=== PATIENT | female | born 1965 | race Caucasian/White ===

== ENCOUNTER 2017-06-29 19:34 | Inpatient (IN) | payer OTHER ==
[~2017-06-29] VITALS: Ht 157.5 cm; Wt 118.0 kg
--- NOTE | 2017-06-29 19:42 | ED PSYCHIATRIC COMPLAINT ---
History of Present Illness General Chief Complaint: Psychiatric Related Complaint Stated Complaint: +SI PER EMS ON PD PAPER Vital Signs & Intake/Output Vital Signs & Intake/Output Vital Signs Date Time Temp Pulse Resp B/P B/P Pulse O2 O2 Flow FiO2 Mean Ox Delivery Rate 06/29 2009 97.6 84 16 140/68 99 Room Air Allergies Coded Allergies: No Known Allergies (06/29/17) Past History Travel History Traveled to [place] past 21 day No Progress Plan of Care: Orders Procedure Date/time Status Regular Diet 06/30 B Active Continuous Observation Monitor 06/29 1943 Active URINE DRUG SCREEN FOR ER ONLY 06/29 1943 Active ETHANOL 06/29 1943 Active COMPREHENSIVE METABOLIC PANEL 06/29 1943 Active CBC WITHOUT DIFFERENTIAL 06/29 1943 Active ED CRISIS PSYCH CONSULT 06/29 1943 Active Departure Departure Condition: Stable Referrals: Unknown Departure Forms: Customer Survey General Discharge Information
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
[2017-06-29 22:21] LABS: ABSOLUTE BASOPHIL COUNT 0 /CUMM (0.0-0.2); ABSOLUTE EOSINOPHIL COUNT 0.4 /CUMM (0.0-0.7); ABSOLUTE GRANULOCYTE CT 6.1 /CUMM (1.4-6.5); ABSOLUTE MONOCYTE COUNT 0.7 /CUMM (0.10-0.60); BASOPHIL % 0.2 % (0.0-2.0); EOSINOPHIL % 4.4 % (0-5); GRANULOCYTE % 65.9 % (42.2-75.2); HEMATOCRIT 42.7 % (37-47); MEAN CORPUSCULAR HGB 31.8 PG (27.0-31.0); MEAN CORPUSCULAR HGB CONC 33.9 G/DL (33.0-37.0); MEAN CORPUSCULAR VOLUME 93.9 FL (81.0-99.0); PLATELET COUNT 399 /CUMM (130-400); RBC DISTRIBUTION WIDTH 14.3 % (11.5-14.5); RED BLOOD CELL CT 4.54 /CUMM (4.20-5.40); WHITE BLOOD CELL COUNT 9.2 /CUMM (4.8-10.8)
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
[2017-06-30 12:18] VITALS: BP 160/82
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
[2017-06-30 12:49] VITALS: BP 160/82
[2017-06-30] MEDS ORDERED: TOPAMAX50 M1 PO (13:19)
[2017-06-30] MEDS ORDERED: WELLBUTRIN XL150 M2 PO (13:20)
[2017-06-30] MEDS ORDERED: CYMBALTA60 M1 PO (13:21)
[2017-06-30] MEDS ORDERED: FOLIC ACID1 M1 PO (13:22)
[2017-06-30] MEDS ORDERED: HYDROCHLOROTHIA25 M1 PO (13:22)
[2017-06-30] MEDS ORDERED: METFORMIN HCL500 M2 PO (13:23)
[2017-06-30] MEDS ORDERED: NORVASC2.5 M1 PO (13:24)
[2017-06-30] MEDS ORDERED: METHOTREXATE2.5 M2 PO (13:27)
--- NOTE | 2017-06-30 15:22 | History & Physical ---
General Information and HPI History of Present Illness: 52-year-old female with history of depression. Admitted to the inpatient psychiatric service after presenting to the ER with depression and suicidal ideation. Currently, uncooperative. 12 point review of systems noncontributory other than reports of depression. Allergies/Medications Allergies: Coded Allergies: No Known Allergies (06/29/17) Home Med list Amlodipine (Norvasc) 2.5 MG TABLET 2.5 MG PO DAILY HYPERTENSION (Reported) Bupropion HCl (Wellbutrin XL) 150 MG TAB.ER.24H 150 MG PO DAILY DEPRESSION ( Reported) Duloxetine HCl (Cymbalta) 60 MG CAPSULE.DR 90 MG PO DAILY DEPRESSION ( Reported) Folic Acid 1 MG TABLET 1 MG PO DAILY VITAMIN (Reported) Hydrochlorothiazide 25 MG TABLET 25 MG PO DAILY HYPERTENSION (Reported) Metformin HCl (Metformin HCl ER) 500 MG TAB.ER.24 500 MG PO BID WEIGHT CONTROL (Reported) Methotrexate 2.5 MG TABLET 2.5 MG PO ONCE A WEEK PSORAISIS (Reported) Topiramate (Topamax) 50 MG TABLET 50 MG PO BID ANXIETY (Reported) Past History Travel History Traveled to [place] past 21 day No Medical History Neurological: NONE EENT: NONE Cardiovascular: NONE Respiratory: NONE Gastrointestinal: NONE Hepatic: NONE Renal: NONE Musculoskeletal: NONE Psychiatric: depression Endocrine: NONE Blood Disorders: NONE Cancer(s): NONE ANALYTICS DIRECTOR/Reproductive: NONE History of MRSA: No History of VRE: No History of CDIFF: No Isolation History: Standard Influenza Vaccine: 06/30/17 Surgical History Surgical History: none Past Family/Social History Psychosocial History Where do you live? Home ETOH Use: occasional use Review of Systems Review of Systems Constitutional: Reports: see HPI. Exam & Diagnostic Data Last 24 Hrs of Vital Signs/I&O Vital Signs Date Time Temp Pulse Resp B/P B/P Pulse O2 O2 Flow FiO2 Mean Ox Delivery Rate 06/30 1503 97.8 56 20 160/82 06/30 1249 97.8 56 160/82 06/30 1218 97.8 56 160/82 06/30 1107 98.5 66 20 141/64 06/30 1101 98.2 77 18 136/84 98 Room Air 06/30 0907 98.5 66 20 141/64 96 Room Air 06/30 0616 97.7 82 18 122/56 94 Room Air 06/30 0341 97.8 65 20 118/606 97 06/30 0044 97.8 64 20 150/62 96 06/30 0023 97.0 68 20 160/92 99 06/29 2233 Room Air 06/29 2009 97.6 84 16 140/68 99 Room Air Intake & Output 06/30 1600 06/30 0800 06/30 0000 Intake Total 0 Output Total Balance 0 Intake, Oral 0 Patient 118.047 kg 117.934 kg Weight Weight Reported by Patient Measurement Method Physical Exam General Appearance Alert, Oriented X3, Cooperative, No Acute Distress Skin No Rashes, No Breakdown, No Significant Lesion HEENT Atraumatic, PERRLA, EOMI, Mucous Membr. moist/pink Neck Supple, No JVD, No thryomegaly Cardiovascular Regular Rate, Normal S1, Normal S2, No Murmurs Lungs Clear to Auscultation, Normal Air Movement Abdomen Normal Bowel Sounds, Soft, No Tenderness Neurological Exam Findings: Normal Gait, Normal Speech, Cranial Nerves 3-12 NL Cranial Nerves II through XII: Within normal limits. Extremities No Clubbing, No Cyanosis, No Edema, Normal Pulses Vascular Normal Pulses Last 24 Hrs of Labs/[place]: Laboratory Tests 06/30/17 0036: Urine Opiates Screen < 100.00, Methadone Screen 71, Barbiturate Screen < 60, Ur Phencyclidine Scrn < 6.00, Amphetamines Screen 200, U Benzodiazepines Scrn < 85, Urine Cocaine Screen < 50, Urine Cannabis Screen < 5.00 06/29/17 2215: Anion Gap 13, Estimated GFR > 60, BUN/Creatinine Ratio 23.3, Glucose 109 H, Hemoglobin A1c Pending, Calcium 10.0, Total Bilirubin 0.3, AST 36, ALT 53 H, Alkaline Phosphatase 85, Total Protein 7.2, Albumin 4.2, Globulin 3.0, Albumin/ Globulin Ratio 1.4, Triglycerides 287 H, Cholesterol 230 H, LDL Cholesterol, Calc 125, HDL Cholesterol 48, Cholesterol/HDL Ratio 5 H, TSH &T3 &Free T4 Intrp 3.120, CBC w Diff NO MAN DIFF REQ, RBC 4.54, MCV 93.9, MCH 31.8 H, RDW 14.3, MPV 8.0, Gran % 65.9, Lymphocytes % 22.0, Monocytes % 7.5, Eosinophils % 4.4, Basophils % 0.2, Absolute Granulocytes 6.1, Absolute Lymphocytes 2.0, Absolute Monocytes 0.7 H, Absolute Eosinophils 0.4, Absolute Basophils 0, PUBS MCHC 33.9 , Serum Alcohol < 10.0 Assessment/Plan Assessment: 52-year-old female with history of depression. Admitted to the inpatient psychiatric service after presenting to the ER with depression and suicidal ideation. Recommendations: - Continue blood pressure control with amlodipine and Toprol-XL -Continue her metformin 500 mg orally twice daily which she is taking for weight loss. Please recall the medical service as needed. - As Ranked By This Provider Problem List: 1. Depression Miscellaneous Miscellaneous Documentation Attending Case Discussed With: Juvenal Sharpe MD Primary Care Physician: Yu Hopkins MD Patient sees these Specialists None. Level of Patient Care: MARGARITA Temple
[2017-06-30 16:21] VITALS: BP 125/66
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
[2017-06-30 19:56] VITALS: BP 123/54
[2017-07-01 07:44] VITALS: BP 144/77; BP 149/93
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
[2017-07-01 12:21] VITALS: BP 121/81
[2017-07-01 16:02] VITALS: BP 134/93
--- NOTE | 2017-07-01 18:49 | CP SOUTH PROGRESS NOTE PSYCH ---
Psych (Inpt) Progress Note Progress Note Include the following elements, when applicable: Involvement in the active treatment of the patient with behavioral observations of the patient and the patient's response to the treatment. Review of the ongoing treatment process in the context of the treatment plan. Indication of how multi-disciplinary staff members are carrying out the treatment plan. Plans for future interventions and recommendations for revision of the treatment plan. Liaison with other physicians/providers. The patient was seen 1: 1 and discussed with the unit staff. We reviewed the inpatient progress notes and the deburrer strip's notes. The patient was hospitalized for depression and suicidal ideation with gesture. She is reporting that she was feeling much better. She reported that her children and her visited her and that felt good. She no longer felt on loft and unknown. She continues to be very sad at the marital tension and poor relationship that she has with her . She continues to feel depressed, with low energy, increased anxiety at the thought of work and how much stress that poses for her. She feels guilty for being and patient, she is conflicted relative her feelings and her marriage. He feels guilty for the potential harm she caused her children by being in hospital. The patient's mood is anxious and depressed. Her affect is constricted, sluggish, blunted appropriate to the situation and content. Patient's thought processes are linear, there is no overt psychosis, there is no yazan or hypomania. The patient states, and also believes, that she will not harm herself or anybody else. She has good attention and concentration, intact memory, she denies histories denies auditory/visual hallucinations, she is tolerating medication well. The patient was worried about treatment after discharge from [facility], we discussed about the possibility of IOP and the necessity of psychotherapy alongside medication management for a good outcome of her mental illness. We will continue present management and daily monitoring for mood and suicidality. She will be seen daily by the unit psychiatrist.
[2017-07-01 19:51] VITALS: BP 122/64
[2017-07-02 07:55] VITALS: BP 125/53
[2017-07-02 12:22] VITALS: BP 130/59
--- NOTE | 2017-07-02 13:50 | CP SOUTH PROGRESS NOTE PSYCH ---
Psych (Inpt) Progress Note Progress Note Include the following elements, when applicable: Involvement in the active treatment of the patient with behavioral observations of the patient and the patient's response to the treatment. Review of the ongoing treatment process in the context of the treatment plan. Indication of how multi-disciplinary staff members are carrying out the treatment plan. Plans for future interventions and recommendations for revision of the treatment plan. Liaison with other physicians/providers. Progress Note: Yessi Pelletier MD's note reviewed. Case and treatment plan discussed in team meeting. Staff reports that the patient denies suicidal ideation. Reportedly has a good phone call with work. Had a lot of visitors. Patient seen at 10:44 AM. She was in group but got up and met with me in the office. States that she is much better and is feeling hopeful. States that family has been visiting. States daughter apologized. Reports that son apologized for calling the police but he was worried, as she had not been herself. Patient feels very supported by family. Reports she is getting a new perspective from attending groups and she feels appreciative of what she does have. Fountain relief after meeting with Yessi Pelletier MD yesterday and discussing PEC. Concerned about work but sister reportedly called the patient's boss to report that the patient was hospitalized for a medical emergency. Affect is calm and euthymic. Patient does not know if her is open to family or marital therapy. Mood is hopeful, curious, interested. Reports yesterday was the first day in 5 months that she has not had passive suicidal ideation. Rates sad mood like a 0/10 and anxiety 0/10. Currently feels calm and at peace. Denies feeling hopeless, helpless or worthless. Feels a little guilty that it had to happen the way it did. Denies suicidal and homicidal ideation. Denies auditory and visual hallucinations and paranoid ideation. Reports she slept okay but is not in her own bed from home. Appetite is fine and energy is fine. States she was not taking care of her hygiene at home but is now. Tolerating medications, including increase in Cymbalta dose, well, without complaint. Patient reports she has a scheduled infusion for this at 12:40 PM. IMPRESSION: Slow progress. Continue present treatment plan. Additional information is needed from collaterals, including outpatient psychiatrist and family. A family meeting will be important. Anticipate likely discharge on Saturday or on morning to home with outpatient follow-up or IOP referral.
[2017-07-02 15:57] VITALS: BP 140/82
--- NOTE | 2017-07-02 17:26 | SOCIAL WORKER PROG NOTE PSYCH ---
Social Work Progress Note Progress Note 5:10pm This auto service writer met with patient. She identified stressors (marriage, family stress and her job). Regarding her job, patient stated that she has "poor boundaries" and is working long hours especially since she works from home. Patient is unsure as to whether she will be able to attend [facility] due to her work schedule and stated that she would like to begin marriage and/or family therapy. Patient denied SI/HI/AH/VH. She stated that she has not experienced SI since she was admitted here and did not have a plan when she did. Patient is agreeable to scheduling a family meeting with her prior to discharge.
[2017-07-03 08:01] VITALS: BP 142/91
[2017-07-03 08:18] VITALS: BP 123/53
[2017-07-03] MEDS ORDERED: TOPROL XL100 M1 PO (13:22)
[2017-07-03 13:25] VITALS: BP 132/67
[2017-07-03] MEDS ORDERED: DAILY MULTIPLE1 EACH PO (13:30)
[2017-07-03] MEDS ORDERED: VITAMIN D3400 UNI1 PO (13:31)
[2017-07-03] MEDS ORDERED: DULOXETINE HCL60 MG PO (13:32)
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
--- NOTE | 2017-07-03 16:54 | CP SOUTH PROGRESS NOTE PSYCH ---
Psych (Inpt) Progress Note Progress Note Include the following elements, when applicable: Involvement in the active treatment of the patient with behavioral observations of the patient and the patient's response to the treatment. Review of the ongoing treatment process in the context of the treatment plan. Indication of how multi-disciplinary staff members are carrying out the treatment plan. Plans for future interventions and recommendations for revision of the treatment plan. Liaison with other physicians/providers. Progress Note: Case and treatment plan discussed in team meeting. Staff reports that the patient looks well. Had a lot of visitors. Socializing with peers. Patient seen at 10:47 AM. Reports she cannot go to [facility] because of her work schedule. States "I'm good." Has no complaints. She was attending group prior to my meeting with her. Affect is calm and euthymic. Anticipates family meeting today. Reports she feels at peace, relieved. Mood is fine, stating that she is feeling hopeful. Rates sad mood and anxiety both 0/10. Denies feeling hopeless, helpless, worthless or guilty. Denies active and passive suicidal ideation. Denies homicidal ideation. Denies auditory and visual hallucinations and paranoid ideation. Patient reports sleeping okay but she does not like her mattress here. Appetite is fine. Energy is fine/good. Tolerating medications well, without complaint. Feels ready and safe for discharge. I joined family meeting with patient, , the couple's 3 children and Juanita stweart LCSW. Patient's and family's questions were addressed. IMPRESSION: Condition improved. Okay for discharge today to home with follow-up with Dr. Fei SEGURA. We are looking into arranging individual and/or family therapy as well.
--- NOTE | 2017-07-03 17:00 | IP INCIDENTAL NOTE PSYCH ---
Incidental Note Notation: Case d/w Dr. Enamorado.
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
--- NOTE | 2017-07-03 18:09 | SOCIAL WORKER PROG NOTE PSYCH ---
See Addendum Social Work Progress Note Progress Note This television script writer spoke with patient's by phone and scheduled a family meeting initially for 1pm. Patient requested that her children attend the meeting as well, and upon discussing with Dr. Sharpe, the meeting was changed to 3pm in order for them to be able to attend. As patient has previously stated, she would like to return to Dr. De Jesus for medication management. She stated that she is not interested in IOP due to her work schedule. Alternate treatment options were explored and patient was provided with the [facility] number and suggested that she contact her insurance company for additional providers. She was also offered a referral to [facility], which she also declined. Patient preferred to contact providers on her own and did not want this television script writer to make referrals or schedule any outpatient appointments. Two attempts were made to reach Dr. De Jesus; voicemail was left. A response was not received prior to the patient discharging and she has agreed to call the doctor in the morning. This television script writer will contact the patient should Dr. De Jesus return the call. Patient was provided with this television script writer's call back number. 3:20pm Dr. Sharpe and this television script writer met with the patient, her and (at patient's request) her three children. The family discussed concerns about the patient appearing to be unhappy. Tension and stress within the family were identified as potential triggers for the stress. The family appeared to be in agreement with wanting healthier communication among members. They were agreeable to scheduling family/marital therapy to explore this further in addition to the patient attending individual therapy. Patient reported feeling "calm and at peace" since entering inpatient treatment. She denied SI/HI/AH/VH. Patient and her family were informed that she would be provided with crisis numbers and warm lines at discharge. 6:60pm This television script writer spoke with Dr. De Jesus by phone ([phone]) who stated that the patient has an appointment on 07/19/17 at 12:20pm. There was no earlier appointment available. She was informed of the discharge plans as discussed with the patient (individual therapy, family/marital therapy and that the patient stated that she would contact providers and did not need this television script writer to make referrals. She is not willing/able to attend IOP due to her work schedule) . Dr. De Jesus was informed that this television script writer will contact the patient with the appointment date/time; she requested that the patient be informed that "she needs to go to therapy." Dr. De Jesus provided her fax number: [phone] 6:10pm This television script writer left brief voicemail on the patient's home number requesting a call back regarding "an appointment." A call back number was provided. Faxed Referral(s) Referred To: Dr. De Jesus Transition of Care Documents sent: Health Summary Faxed to: Dr. De Jseus Fax #: [phone] Faxed by: Sushila HOLLANDW Date faxed: 07/03/17 Time Faxed: [phone]
== END 2017-07-03 17:25 | DRG 881 ==
LOC: ERH 19:34 → CP SOUTH 06-30 10:49 → ERHI 06-30 10:49 → ENTRNSPT 06-30 11:38 → EDTRNSPTSTS 06-30 11:45 → CP SOUTH 06-30 11:56 → CMPTRNSPT 06-30 12:03 → CP SOUTH 07-03 16:53
PROVIDERS: Physician Assistant
DX: F32.9 Major depressive disorder, single episode, unspecified (principal); L40.50 Arthropathic psoriasis, unspecified; F41.9 Anxiety disorder, unspecified; E66.3 Overweight
CPT/HCPCS: 80307; G0463; G0480; J3490; J7508; Q2036